=== PATIENT | male | born 1970 | race Two or more races ===

== ENCOUNTER 2018-07-22 18:59 | Emergency (ER) | payer OTHER ==
[2018-07-22 19:10] VITALS: BP 152/87; PULSE 78; TEMP 98.5; BMI 35.5
--- NOTE | 2018-07-22 20:15 | PDOC ---
History of Present Illness - General Chief Complaint: Pain, Acute Stated Complaint: PAIN ON THE RIGHT SIDE Time Seen by Provider: 07/22/18 20:09 History Source: Patient, Spouse ( present at bedside.) Exam Limitations: No Limitations - History of Present Illness Initial Comments: HPI: 48 y/o male presenting to [facility] ER complaining of migratory right flank pain x4 days. Pain started in right lower back and has moved to the right flank and then to the lower right quadrant/groin. Denies dysuria, increased urinary frequency, hematuria, or penile discharge. No h/o of similar. Endorses constipation during this period but has passed flatus normally. Decreased PO intake. Nausea with single of emesis today. Pt had multiple teeth extracted at dentist on Monday. Was prescribed Amoxicillin and Tylenol #3 (last taken this morning at approx. 7am). PCP: Dr. Jolie Quezada Hx: - HTN - HLD - Gout, usually involves right foot Pt does not take any prescription medications. Surgical Hx: - Remove left testicle surgery, possibly hydrocele repair for infertility management Past History - Past Medical History Allergies/Adverse Reactions: Allergies Allergy/AdvReac Type Severity Reaction Status Date / Time No Known Allergies Allergy Verified 07/22/18 19:10 Home Medications: Ambulatory Orders Acetaminophen W/ Codeine #3 [Tylenol # 3 -] 1 tab PO Q6H PRN 07/22/18 Amoxicillin - [Amoxicillin 500mg Capsule -] 500 mg PO TID 07/22/18 Docusate Sodium [Colace] 100 mg PO DAILY #7 capsule 07/22/18 traMADol HCL [Ultram -] 50 mg PO Q8H PRN 3 Days #9 tablet MDD 3 pills 07/22/18 COPD: No HTN: Yes Hypercholesterolemia: Yes - Suicide/Smoking/Psychosocial Hx Smoking History: Never smoked Review of Systems - Review of Systems Able to Perform ROS?: Yes Comments:: In addition to that documented in the HPI above, the additional ROS was obtained : Constitutional: Endorses chills today but denies fevers Head: Denies vision changes ENMT: Denies sore throat CV: Denies chest pain Resp: Denies SOB GI: Denies vomiting or diarrhea : Per HPI MSK: Denies recent trauma Skin: Denies new rashes Neuro: Denies new numbness or tingling or weakness Endocrine: Denies polyuria Heme: Denies bleeding or bruising *Physical Exam - Vital Signs Last Vital Signs Temp Pulse Resp BP Pulse Ox 98.5 F 78 18 152/87 97 07/22/18 19:06 07/22/18 19:06 07/22/18 19:06 07/22/18 19:06 07/22/18 19:06 - Physical Exam Comments: Constitutional: Well-developed, well-nourished adult male in no acute distress or obvious discomfort. Found semi-fowlers on hospital bed. Alert and oriented x4. Answered all questions appropriately and completely. Speech was non-labored , non-pressured. Observed walking through the department unassisted without obvious difficulty. Head: Normocephalic. No obvious external signs of trauma. Eyes: Sclerae white. Ears: Hearing grossly intact. Nose: No nasal discharge. Neck: Supple, trachea is midline. Cardiovascular / Chest: Regular rate and regular rhythm. No murmur, rubs, clicks, or gallops. Peripheral pulses: radial pulses full. Respiratory: Breathing unlabored. Equal chest rise and fall. Clear to auscultation bilaterally. No stridor, no wheezing, no rhonchi. Gastrointestinal: abdomen is mildly tender in RLQ/ right pelvis without rebound or guarding. Globally, abdomen is soft and non-distended. No hepatosplenemegaly. No pulsatile masses. No overlying skin lesions or obvious signs of trauma. Neuro: Alert and oriented. Moving all four extremities spontaneously. Gait normal. Skin: Warm, dry, and intact. : No R or L CVA tenderness. Psych: Affect: appropriate. Mood: normal. MALE GENITALIA: Genital exam revealed normally developed male genitalia. Circumcised penis. No scrotal mass or tenderness, no hernias or inguinal lymphadenopathy. No perineal or perianal abnormalities are seen. No genital lesions or urethral discharge. Moderate Sedation - Procedure Monitoring Vital Signs: Procedure Monitoring Vital Signs Temperature 98.5 F 07/22/18 19:06 Pulse Rate 78 07/22/18 19:06 Respiratory Rate 18 07/22/18 19:06 Blood Pressure 152/87 07/22/18 19:06 O2 Sat by Pulse Oximetry (%) 97 07/22/18 19:06 ED Treatment Course - LABORATORY CBC & Chemistry Diagram: 07/22/18 20:37 07/22/18 20:37 - RADIOLOGY Radiograph Interpretation: Spiral, Non-Con Abdominal CT: Gianluca Hansen MD wrote on Jul 22, 2018 at 11:10 PM: Referring Physician: BISHOP GONZALEZ Patient Name: KAROLINE DAILEY THIS IS A PRELIMINARY REPORT FROM [facility] DATE OF SERVICE: 2018-07-22 21:44:48 IMAGES: 492 EXAM: SPIRAL- RENAL-STONE CT History: 48-year-old male with a migratory right flank pain Comparison: None Procedure: CT scan abdomen and pelvis; stone protocol, dated 22 July 2018 . Axial images obtained followed by coronal and sagittal reconstructions. Study performed unenhanced. Findings: Nodular appearing density left lung base medially with a patchy area of groundglass opacification inferior segment lingula left upper lobe. The superior extent right lobe liver not included within the scanned volume obtained with this exam. The unenhanced liver, spleen, pancreas, and adrenal glands are unremarkable. Gallbladder and gallbladder fossa normal in appearance. No intrarenal calculi identified left kidney. Nonobstructing punctate calculus lower pole collecting system right kidney. Mild right-sided hydronephrosis and hydroureter, related to a 2-3 mm calculus right UV junction. No evidence ofleft-sided hydronephrosis, left ureteral or bladder calculi. Prostate gland and seminal vesicles normal configuration. Rectum and perirectal space unremarkable. Scattered diverticuli noted sigmoid colon and left colon. No inflammatory changes of the large or small bowel identified. Terminal ileum and appendix within normal limits. No free intraperitoneal air or fluid identified. No abdominal wall defects noted. Degenerative disc disease L5-S1 disc level. Impression: 1. Limited CT scan abdomen pelvis, unenhanced. 2. Punctate non-obstructing calculus lower pole collecting system right kidney. Mild right-sided hydronephrosis and hydroureter related to a 2-3 mm calculus, right UV junction. 3. No evidence of GI tract obstruction or inflammatory change. Terminal ileum and appendix within normal limits. Colonic diverticulosis noted. One or more of the following dose reduction techniques were used: automated exposure control, adjustment of the mA and/or kV according to patient size, use of iterative reconstructive technique. THIS DOCUMENT HAS BEEN ELECTRONICALLY SIGNED Gianluca Hansen MD 07/22/2018 23:08 EST - Medications Given in the ED: ED Medications Discontinued Medications Generic Name Dose Route Start Last Admin Trade Name Freq PRN Reason Stop Dose Admin Ketorolac Tromethamine 30 mg 07/22/18 20:41 07/22/18 20:56 Toradol Injection - IVPUSH 07/22/18 20:42 30 mg ONCE ONE Administration Lactated Ringer's 1,000 ml 07/22/18 20:48 07/22/18 21:13 Lactated Ringers Solution IV 07/22/18 20:49 1,000 ml ONCE ONE Administration Medical Decision Making - Medical Decision Making *Reviewed vital signs, nursing notes, and prior visit documentation (if available). 48 y/o male presenting with four days of migratory right flank pain. 2-3mm right nephrolithiasis at right UVJ noted on spiral CT. No leukocytosis, pyuria, nitrites, or leukocytes esterase. Low suspicion for infectious process. Cr elevated. No previous labs available for comparison. Suspect possible dehydration as pt is also mildly hyponatremic. Received 1L IVFB in the department. 23:[address] Elvi Ken. Verbally appraised of the pts HPI, ED course, and current plan of management. Suggested pt be discharged and can follow up in clinic this week. Will encourage increased PO hydration. Will prescribe Ultram for pain relief. Discussed imaging and laboratory results with pt. Answered all questions. Provided return precautions. Pt expressed verbal understanding and agreement with plan to discharge home with outpatient follow up. *DC/Admit/Observation/Transfer Diagnosis at time of Disposition: Right nephrolithiasis - Discharge Dispostion Disposition: HOME Condition at time of disposition: Good Decision to Admit order: No - Prescriptions Prescriptions: Docusate Sodium [Colace] 100 mg PO DAILY #7 capsule traMADol HCL [Ultram -] 50 mg PO Q8H PRN 3 Days #9 tablet MDD 3 pills PRN Reason: Pain - Referrals Referrals: Leland Dave MD [Primary Care Provider] - Riley Ken MD [Staff Physician] - - Patient Instructions Printed Discharge Instructions: DI for Kidney Stones Additional Instructions: You were seen today for right sided flank pain. Your CT showed a small kidney stone with some swelling to your right kidney. Your labs showed an elevation in one of your kidney markers. This is likely from the stone. Be sure to drink more water over the next several days. You may continue to have some discomfort. To help, I have sent a prescription for Ultram to your pharmacy. Take as directed on the package insert. Do not exceed the recommended dosage. You should follow up with a urologist this week in clinic. I have placed a referral for you to see Dr. Ken. I have already called and discussed your case with him. You will need to call to make an appointment. The number is included in this packet. A copy of todays results are attached to this packet. Take it to the appointment so your doctor can review them. You can also follow up with your primary care doctor if you are unable to follow up with a urologist. I have also prescribed a stool softener for your constipation. Go to the nearest emergency department if your condition worsens or you feel like you need additional emergency evaluation. Print Language: ARMENIAN - Post Discharge Activity Forms/Work/School Notes: Back to Work
[2018-07-22] MEDS ORDERED: KETOROLAC TROMETHAMINE 30 MG/1 ML VIAL IVPUSH ONE (20:41)
[2018-07-22] MEDS ORDERED: KETOROLAC TROMETHAMINE 30 MG/1 ML VIAL ONE (20:48)
[2018-07-22] MEDS ORDERED: LACTATED RINGERS SOLUTION 1000 ML INFUS.BAG IV ONE (20:48)
[2018-07-22 20:53] LABS: BASO % 0.4 % (0-2.0); EOS % 0.5 % (0-4.5); HEMATOCRIT 39.1 % (35.4-49); HEMOGLOBIN 13.3 GM/dL (11.7-16.9); LYMPH % 11.5 % (8-40); MCH 29.3 pg (25.7-33.7); MEAN CELL VOLUME 86.4 fl (80-96); MONO % 5.1 % (3.8-10.2); NEUT % 82.5 % (42.8-82.8); PLATELET COUNT 250 K/MM3 (134-434); RBC 4.52 M/mm3 (4.00-5.60); RDW 14.1 % (11.9-15.9)
[2018-07-22 21:17] LABS: EPI CELLS 0.2 /HPF (0-5); HYALINE CASTS 0 /hpf (0-8); URINE APPEARANCE CLEAR; URINE BACTERIA 0 /hpf (NEGATIVE); URINE BILIRUBIN NEGATIVE (<2.0 mg/dL); URINE COLOR YELLOW; URINE GLUCOSE (UA) NEGATIVE (NEGATIVE); URINE KETONE NEGATIVE (NEGATIVE); URINE LEUK ESTERASE NEGATIVE (NEGATIVE); URINE NITRITE NEGATIVE (NEGATIVE); URINE PROTEIN NEGATIVE (NEGATIVE); URINE RBC 7 /hpf (0-4); URINE UROBILINOGEN 0.2 mg/dL (0.2-1.0); URINE WBC 1 /hpf (0-5)
[2018-07-22 21:34] LABS: ALBUMIN 3.8 g/dl (3.4-5.0); ALK PHOS 74 U/L (45-117); ANION GAP 9 MMOL/L (8-16); BILIRUBIN,TOTAL 0.3 mg/dL (0.2-1); BLOOD UREA NITROGEN 17 mg/dL (7-18); CALCIUM 8.5 mg/dL (8.5-10.1); CHLORIDE 97 mmol/L (98-107); CO2 24 mmol/L (21-32); CREATININE 1.7 mg/dL (0.55-1.3); GLUCOSE,RANDOM 111 mg/dL (74-106); POTASSIUM 4.2 mmol/L (3.5-5.1); SGOT/AST 29 U/L (15-37); SGPT/ALT 28 U/L (13-61); SODIUM 130 mmol/L (136-145); TOT PROT 8.8 g/dl (6.4-8.2)
--- NOTE | 2018-07-22 21:47 | PDOC ---
Attending Attestation - Resident Resident Name: Manolo Addison - ED Attending Attestation I have performed the following: I have examined & evaluated the patient, The case was reviewed & discussed with the resident, I agree w/resident's findings & plan, Exceptions are as noted - HPI HPI: 07/22/18 21:42 The patient is a 48 year old male with a significant PMH of HTN, HLD, and gout who presents to the emergency department with right flank pain for the past 4 days. Patient states the right flank pain radiates to the right lower quadrant and down to the right testicle. Patient reports the right flank pain became sharper tonight prompting him to come to the ER for further evaluation. He also admits to chills and constipation for 3 days. Patient denies similar symptoms in the past. Denies history of kidney stones. He is currently on amoxicillin and tylenol/codeine for dental procedure 3 days ago. The patient denies chest pain, shortness of breath, headache and dizziness. Denies fever, nausea, vomit, and diarrhea. Denies dysuria, frequency, urgency and hematuria. Allergies: NKA Past surgical history: None reported. Social history: No reported alcohol, drug or cigarette use. PCP: Dr. Dave - Physicial Exam PE: 07/22/18 21:46 GENERAL: Awake, alert, and fully oriented, in no acute distress EYES: PERRLA, EOMI, sclera anicteric, conjunctiva clear ENT: Nares patent, oropharynx clear without exudates. Moist mucosa NECK: Normal ROM, supple, no lymphadenopathy, JVD, or masses LUNGS: Breath sounds equal, clear to auscultation bilaterally. No wheezes, and no crackles HEART: Regular rate and rhythm, normal S1 and S2, no murmurs, rubs or gallops ABDOMEN: Soft, nontender, normoactive bowel sounds. No guarding, no rebound. No masses : +R sided CVAT, testicular/penile exam per Dr. Addison's note EXTREMITIES: Normal range of motion, no edema. No cords, erythema, or tenderness NEUROLOGICAL: Normal speech, cranial nerves intact, equal strength and sensation b/l SKIN: Warm, Dry, normal turgor, no rashes or lesions noted. - Medical Decision Making 07/22/18 21:00 48yo M with no sig PMH presents to the ED with 4 days of progressive R sided flank pain radiating to the R groin Vitals with elevated BP to 150s systolic likely 2/2 pain Exam with mild R CVAT, no abd or genital ttp DDx includes but not limited to renal colic vs UTI vs MSK pain Plan: -labs -UA/UCx -spiral CT -pain controlled at this time with toradol -IVF -reassess 07/23/18 00:31 CTAP with 2-3mm stone in R UVJ with mild hydro Speech Pathologist Assistant 1.7, no prev to compare Given duration of sxs (4 days), RAMEZ likely 2/2 obstructing stone Case discussed with urologist chemical economist Dr. Ken who recommends outpt urology f/ u Pain well controlled with toradol All results discussed with pt and his REturn precautions discussed Will DC with tramadol PRN and colace as he reported he was constipated Pt encouraged not to take NSAIDs due to RAMEZ I discussed the physical exam findings, ancillary test results and final diagnoses with the patient. I answered all of the patient's questions. The patient was satisfied with the care received and felt comfortable with the discharge plan and treatment plan. The patient will call their primary care physician within 24 hours to arrange follow-up and will return to the Emergency Department with any new, persistent or worsening symptoms.
== END 2018-07-23 00:47 | disposition home or self-care (01) ==
LOC: JER 18:59
PROC: 3E0333Z Introduction of Anti-inflammatory into Peripheral Vein, Percutaneous Approach (ICD-10-PCS; principal; 2018-07-22)
DX: N20.0 Calculus of kidney (principal); I10 Essential (primary) hypertension; E78.00 Pure hypercholesterolemia, unspecified; M10.9 Gout, unspecified
CPT/HCPCS: 36415; 74176-TC; 80053; 81003; 85025; 87086; 99282-25